=== PATIENT | female | born 1965 | race Caucasian/White ===

== ENCOUNTER → 2018-08-15 | Outpatient (CLI) | payer MEDICAID ==
[~2018-08-15] MED LIST: ALPR-475 PO; HYDR-3307 PO; IBUP-1484 PO; OMEP20TA62 PO
== END | disposition home or self-care (01) ==
LOC: CFH 12:58
PROVIDERS: ATTEND Anesthesiology
DX: M47.816 Spondylosis without myelopathy or radiculopathy, lumbar region (principal)
CPT/HCPCS: 72148

== ENCOUNTER 2019-02-01 04:15 | Emergency (ER) | payer MEDICAID ==
[~2019-02-01] VITALS: Ht 172.7 cm; Wt 101.3 kg
[2019-02-01] MEDS ORDERED: NAPR-856 PO (04:24)
--- NOTE | 2019-02-01 04:47 | NUR ---
FIRST CONTACT WITH PT. PT HERE NOTING R KNEE PAIN SINCE SURGERY IN DECCOBER BUT IS ALSO HAVING L KNEE PAIN, STATES THAT SHE BUMPED HER KNEE 2 DAYS AGO. PT DENIES ANY OTHER S/S AT THIS TIME. PT'S AOX4. RESPS EVEN AND UNLABORED. BP/SPO2 MONITORS IN PLACE. CALL LIGHT WITHIN REACH. AWAITING EDMD ASSESSMENT AT THIS TIME.
--- NOTE | 2019-02-01 05:31 | NUR ---
pt refused to be hooked back up to monitors post x-ray bp/pulse ox
[2019-02-01] MEDS ORDERED: HYDROcodone/APAP 5/325 TABLET ONE (05:35)
--- NOTE | 2019-02-01 05:46 | NUR ---
PT MEDICATED PER EMAR. PT TOLERATED WELL. PT'S AOX4. RESPS EVEN AND UNLABORED.
[2019-02-01 06:00] VITALS: BP 149/95
[2019-02-01] MEDS ORDERED: HYDROcodone/APAP 5/325 TABLET PO ONE (06:00)
--- NOTE | 2019-02-01 06:06 | NUR ---
PT LEFT WITHOUT DC INSTRUCTIONS AND PRICILLA BANDAGE. PT'S AOX4. RESPS EVEN AND UNLABORED.
== END 2019-02-01 06:07 | disposition home or self-care (01) ==
LOC: ED 06:00
DX: G89.29 Other chronic pain (principal); M25.561 Pain in right knee; I10 Essential (primary) hypertension
CPT/HCPCS: 99283